=== PATIENT | female | born 1985 | race Hispanic/Latino ===

== ENCOUNTER 2021-12-19 06:04 | Inpatient (IN) | payer OTHER ==
[2021-12-19 06:29] VITALS: BMI 32.1
[2021-12-19] MEDS ORDERED: Bupivacaine 0.25% HCL 30 ML VIAL ONE (07:00)
[2021-12-19] MEDS: Lactated Ringer's 1,000 ML IV SCH ×3 (07:07→11:01)
[2021-12-19 07:29] LABS: Hemoglobin 12.1 g/dL (12.0-15.5); Mean Corpuscular HGB CONC 33.8 g/dL (32.0-36.0); Mean Corpuscular Hemoglobin 27.4 pg (27.0-33.0); Mean Platelet Volume 11.5 fl (7.4-10.4); Platelet Count 187 10x3/uL (150-450); RBC Distribution Width 23.9 % (11.5-14.5); Red Blood Cell (RBC) Count 4.42 10x6/uL (3.90-5.03); White Blood Cell (WBC) Count 8.2 10x3/uL (3.5-10.5)
[2021-12-19 08:01] LABS: Hep B Surf Ag Non-Reactive S/CO (NonReactive)
[2021-12-19 08:05] LABS: HBSAg Index 0.22 S/CO (0-0.99)
[2021-12-19] MEDS ORDERED: Promethazine HCl 25 MG/ML VIAL IM PRN ×2 (08:33→11:16)
[2021-12-19] MEDS ORDERED: hydrALAZINE 20 MG/ML VIAL SLOW IVP PRN ×2 (08:33→15:29)
[2021-12-19] MEDS ORDERED: Ondansetron PF 4 MG/2 ML Vial IVP PRN ×3 (08:33→15:29)
[2021-12-19] MEDS ORDERED: Lidocaine 1% (PF) 30 ML VIAL SC PRN (08:33)
[2021-12-19] MEDS ORDERED: NS w/ Oxytocin 30 units 500 ML IV SCH ×2 (08:45)
[2021-12-19] MEDS ORDERED: Misoprostol 200 MCG TAB PR PRN (09:41)
[2021-12-19] MEDS ORDERED: Methylergonovine 0.2 MG/ML VIAL IM PRN (09:41)
[2021-12-19] MEDS ORDERED: Carboprost 250 MCG/ML AMP IM PRN (09:41)
[2021-12-19] MEDS ORDERED: Tranexamic Acid 1,000 MG in Sodium Chloride 0.9% 250 ML 250 ML IVPB PRN (09:43)
[2021-12-19] MEDS ORDERED: Fentanyl 2 mcg/Bup 0.1% Cadd 100 ML ONE (10:00)
[2021-12-19 10:06] LABS: Syphilis Antibody Nonreactive (Nonreactive); Syphilis Antibody Index 0.04 S/CO (<1.00 Non-Reactive)
[2021-12-19 11:01] LABS: SARS-CoV-2 NAA Rapid Test Not Detected (NotDetected)
[2021-12-19] MEDS ORDERED: Acetaminophen 325 MG TAB PO PRN (11:16)
[2021-12-19] MEDS ORDERED: Moisturizing Cream (Eucerin) 113 GM JAR TOP PRN (11:16)
[2021-12-19] MEDS ORDERED: ePHEDrine Sulfate 50 MG/10 ML VIAL SLOW IVP PRN (11:16)
[2021-12-19] MEDS ORDERED: Naloxone HCl 0.4 mg/ml Vial IVP PRN ×2 (11:16)
[2021-12-19] MEDS ORDERED: diphenhydrAMINE 50 MG/ML VIAL IVP PRN (11:16)
[2021-12-19] MEDS ORDERED: Lactated Ringer's 500 ML IV PRN (11:16)
[2021-12-19] MEDS ORDERED: Fentanyl 2 mcg/Bupivacaine 0.1% Cassette 100 ML EPIDURAL SCH (11:30)
[2021-12-19] MEDS ORDERED: Communication Order-Pharmacy FS SCH (11:30)
[2021-12-19 15:15] LABS: pH (Cord, venous) 7.368 (7.250-7.350)
[2021-12-19] MEDS ORDERED: Bisacodyl 10 MG SUPP PR PRN (15:29)
[2021-12-19] MEDS ORDERED: Milk Of Magnesia 30 ML UDCUP PO PRN (15:29)
[2021-12-19] MEDS: Ferrous Sulfate 325 MG TAB PO SCH (18:01)
[2021-12-19] MEDS: Docusate 100 MG CAP PO SCH (21:25)
[2021-12-19] MEDS: Ibuprofen 800 MG TAB PO SCH (21:25)
[2021-12-20] MEDS: Ibuprofen 800 MG TAB PO SCH ×3 (05:26→22:25)
[2021-12-20] MEDS: Ferrous Sulfate 325 MG TAB PO SCH (07:21)
[2021-12-20] MEDS ORDERED: Acetaminophen 325 MG TAB PO PRN (08:39)
[2021-12-20] MEDS: Docusate 100 MG CAP PO SCH ×2 (08:43→22:25)
[2021-12-20] MEDS: Prenatal Vitamin 1 TAB PO SCH (08:43)
[2021-12-20] MEDS ORDERED: Boostrix 0.5 ML (Tdap) VIAL IM ONE (15:29)
[2021-12-21] MEDS: Ibuprofen 800 MG TAB PO SCH ×2 (05:41→13:40)
[2021-12-21] MEDS: Ferrous Sulfate 325 MG TAB PO SCH (07:18)
[2021-12-21] MEDS: Prenatal Vitamin 1 TAB PO SCH (07:39)
[2021-12-21] MEDS: Docusate 100 MG CAP PO SCH (07:39)
[2021-12-21 07:40] VITALS: BP 123/70; TEMP 98
== END 2021-12-21 15:14 | disposition home or self-care (01) | DRG 807 ==
LOC: CSHLD/OP 06:04 → CSHLD 14:00 → CSHPP 17:32
PROVIDERS: ADMIT Obstetrics & Gynecology; ATTEND Obstetrics & Gynecology
PROC: 10E0XZZ Delivery of Products of Conception, External Approach (ICD-10-PCS; principal; 2021-12-19)
PROC: 3E033VJ Introduction of Other Hormone into Peripheral Vein, Percutaneous Approach (ICD-10-PCS; 2021-12-19)
DX: O42.02 Full-term premature rupture of membranes, onset of labor within 24 hours of rupture (principal); Z37.0 Single live birth; Z20.822 Contact with and (suspected) exposure to COVID-19; Z79.899 Other long term (current) drug therapy; Z3A.40 40 weeks gestation of pregnancy; O77.0 Labor and delivery complicated by meconium in amniotic fluid
CPT/HCPCS: 51702; 82805; 85027; 86780; 86850; 86900; 86901; 87340; 99285; J2210; J2590; J3490; J7120; S0020; U0002